=== PATIENT | female | born 1985 | race Two or more races ===

== ENCOUNTER 2020-09-13 19:35 | Observation (INO) | payer MEDICAID ==
[~2020-09-13] VITALS: Ht 154.9 cm; Wt 64.4 kg
[2020-09-13] MEDS ORDERED: PREN1TAB78 PO (20:15)
[2020-09-13] MEDS ORDERED: FERR325T6 PO (20:15)
[2020-09-13] MEDS ORDERED: CALCIUM (20:15)
[2020-09-30] MEDS ORDERED: IBUP-2030 PO (05:47)
== END 2020-09-13 20:48 | disposition home or self-care (01) ==
LOC: 8 EST LDRP 19:35
PROVIDERS: ADMIT Obstetrics & Gynecology; ATTEND Obstetrics & Gynecology
DX: O26.893 Other specified pregnancy related conditions, third trimester (principal); R10.9 Unspecified abdominal pain; O62.9 Abnormality of forces of labor, unspecified; O99.891 Other specified diseases and conditions complicating pregnancy; M54.5 Low back pain; R51.9 Headache, unspecified; Z3A.37 37 weeks gestation of pregnancy
CPT/HCPCS: 59025; G0378; 99281

== ENCOUNTER 2020-09-14 03:26 | Observation (INO) | payer MEDICAID ==
[~2020-09-14] VITALS: Ht 154.9 cm; Wt 64.4 kg
[~2020-09-14 03:26] MED LIST: CALCIUM; FERR325T6 PO; PREN1TAB78 PO
[2020-09-14] MEDS ORDERED: CEFAZOLIN 2,000 MG in DEXT 5% WATER 100 ML IV SCH (04:00)
[2020-09-14] MEDS: LACTATED RINGERS 1,000 ML IV SCH ×2 (04:20→05:40)
[2020-09-14 04:38] LABS: CLARITY URINE CLEAR (CLEAR); COLOR URINE YELLOW (YELLOW); KETONES URINE 1+ (NEGATIVE); LEUKOCYTE ESTERASE URINE NEGATIVE (NEGATIVE); NITRITE URINE NEGATIVE (NEGATIVE); OCCULT BLOOD URINE NEGATIVE (NEGATIVE); PH URINE 6.5 (4.5-8.0); PROTEIN URINE NEGATIVE (NEGATIVE); SPECIFIC GRAVITY URINE 1.021 (1.005-1.030); UROBILINOGEN URINE 0.2 E.U./dL (0.2-1.0)
[2020-09-14] MEDS ORDERED: ONDANSETRON HCL 4MG/2ML INJ IV NR (05:45)
[2020-09-30] MEDS ORDERED: IBUP-2030 PO (05:47)
== END 2020-09-14 06:20 | disposition home or self-care (01) ==
LOC: INTOOBSV 03:26 → 8 EST LDRP 03:26
PROVIDERS: ADMIT Obstetrics & Gynecology; ATTEND Obstetrics & Gynecology
DX: O62.9 Abnormality of forces of labor, unspecified (principal); O26.893 Other specified pregnancy related conditions, third trimester; R10.9 Unspecified abdominal pain; O99.891 Other specified diseases and conditions complicating pregnancy; R51.9 Headache, unspecified; Z3A.37 37 weeks gestation of pregnancy
CPT/HCPCS: 81003; 96361; 96365; 96375; G0378; J0690; J2405; J7060; 59025; 96360; 99281

== ENCOUNTER 2020-09-14 06:26 | Inpatient (IN) | payer MEDICAID ==
[~2020-09-14] VITALS: Ht 154.9 cm; Wt 64.4 kg
[2020-09-14] MEDS ORDERED: SODIUM CHLORIDE 0.9% 1,000 ML IV ONE (07:00)
[2020-09-14] MEDS ORDERED: ACETAMINOPHEN 325MG TABLET PO ONE (07:30)
[2020-09-14 07:38] LABS: HEMATOCRIT. 33.8 % (36.0-48.0); HEMOGLOBIN. 11.2 g/dL (12.0-16.0); MEAN CORPUSCULAR HEMOGLOBIN 31.7 pg (28.0-32.0); MEAN CORPUSCULAR VOLUME 95.4 fL (81.0-99.0); MEAN PLATELET VOLUME 8.3 fl (7.4-10.4); PLATELET 212 x1000/uL (130-400); RED BLOOD CELL COUNT 3.54 mill/uL (4.2-5.4); RED CELL DISTRIBUTION WIDTH 14.5 % (11.6-14.6)
[2020-09-14 07:41] LABS: CHLORIDE 107 mEq/L (98-107)
[2020-09-14 07:44] LABS: PROTHROMBIN TIME 10.7 sec (9.6-11.0)
[2020-09-14 08:09] LABS: PLATELET ESTIMATE NORMAL
[2020-09-14] MEDS ORDERED: ACETAMINOPHEN 325MG TABLET PO PRN (15:45)
[2020-09-14 15:58] VITALS: BP 109/63
[2020-09-14 16:00] VITALS: BP 109/63
[2020-09-15 06:00] VITALS: BP 110/65
[2020-09-15 07:25] LABS: BASOPHILS % 0.8 % (0.0-2.0); EOSINOPHILS % 1.1 % (0.0-5.0); HEMATOCRIT. 28.3 % (36.0-48.0); HEMOGLOBIN. 9.6 g/dL (12.0-16.0); LYMPHOCYTES % 18.9 % (20.0-50.0); MEAN CORPUSCULAR HEMOGLOBIN 32.7 pg (28.0-32.0); MEAN CORPUSCULAR VOLUME 96.6 fL (81.0-99.0); MEAN PLATELET VOLUME 8.8 fl (7.4-10.4); MONOCYTES % 8.6 % (2.0-8.0); NEUTROPHILS % 70.6 % (40.0-76.0); PLATELET 198 x1000/uL (130-400); RED BLOOD CELL COUNT 2.93 mill/uL (4.2-5.4); RED CELL DISTRIBUTION WIDTH 14.6 % (11.6-14.6)
[2020-09-15 08:00] VITALS: BP 109/68
[2020-09-15] MEDS ORDERED: PRENATAL VIT/FE FUMARATE/FA TABLET PO SCH (09:00)
[2020-09-15 09:48] VITALS: BP 109/58
[2020-09-30] MEDS ORDERED: IBUP-2030 PO (05:47)
== END 2020-09-15 11:00 | disposition home or self-care (01) | DRG 566 ==
LOC: ER 06:26 → EDBEDREQ 07:02 → 6EST 10:19 → EDBEDREQ 10:21 → ENRESERV 13:05
PROVIDERS: ADMIT Obstetrics & Gynecology; ATTEND Obstetrics & Gynecology
DX: O26.893 Other specified pregnancy related conditions, third trimester (principal); R10.9 Unspecified abdominal pain; Z3A.37 37 weeks gestation of pregnancy
CPT/HCPCS: 36415; 76700; 76805; 80053; 83605; 83880; 84145; 84484; 85025; 93005; 99285; J7030